=== PATIENT | male | born 1965 | race Caucasian/White ===

== ENCOUNTER 2016-08-30 13:05 | Emergency (ER) | payer OTHER ==
--- NOTE | 2016-08-30 14:25 | REP ---
Clinical: Trauma. Technique: AP, lateral, bilateral oblique views of the left ankle. Findings: Diffuse soft tissue swelling is appreciated. No acute fracture or dislocation. Joint spaces and ankle mortise are intact. Impression: Soft-tissue swelling. No acute fracture or dislocation. Signed by Max Early MD 08/30/2016 02:16 P
--- NOTE | 2016-08-30 14:27 | REP ---
Clinical: Trauma. Technique: AP, lateral, bilateral oblique views left foot. Findings: Soft tissue swelling at the ankle is appreciated. The osseous structures and joint spaces are intact and normal. There is no evidence for acute fracture or dislocation. No subcutaneous emphysema or radiodense foreign body. Impression: No acute fracture or dislocation. Ankle swelling. Signed by Max Early MD 08/30/2016 02:19 P
--- NOTE | 2016-08-30 14:57 | REP ---
Clinical: Pain and swelling . Technique: Ingram scale and color Doppler evaluation using linear high frequency transducer. Findings: Ultrasound examination of the left lower extremity deep venous structures from the common femoral vein to the popliteal vein demonstrates normal compressibility flow and wave patterns in response to respiration and augmentation. There is no evidence for deep venous thrombosis. Impression: No evidence for deep venous thrombosis. Signed by Max Early MD 08/30/2016 02:49 P
[2016-08-30] MEDS ORDERED: OXYCODONE/APAP 5MG/325MG(BULK) 1 TAB TAB As Ordered ONE (15:05)
--- NOTE | 2016-08-30 15:20 | EDDOCDS ---
Physician Documentation [facility] Name: Adi Patiño Age: 51 yrs Sex: Male : 1965 Arrival Date: 08/30/2016 Time: 13:05 Bed I9 / 22 Private MD: Keiry De C Disposition: 08/30/16 14:56 Discharged to Home/Self Care. Impression: Sprain of ankle - left. - Condition is Stable. - Discharge Instructions: Ankle Sprain, Ankle Sprain, [id number]. - Prescriptions for Naprosyn 250 mg Oral Tablet - take 1 tablet by ORAL route every 12 hours take with food; 30 tablet. Percocet 5- 325 mg Oral Tablet - take 1 tablet by ORAL route every 6 hours As needed MDD: 4 tabs; 12 tablet. - Medication Reconciliation, Local Pharmacy Hours form. - Follow up: Keiry De; When: 1 week. - Problem is new. - Symptoms have improved. Historical: - Allergies: hay (eyes and nose runs); - Home Meds: 1. Paxil Oral 1 tab once daily - PMHx: Anxiety; Depression; - PSHx: none; - Social history: Smoking status: Patient states was never smoker of tobacco. No barriers to communication noted, The patient speaks fluent Syriac, Speaks appropriately for age. - Family history: Not pertinent. - : The pt / caregiver states he / she is not on anticoagulants. Home medication list is obtained from the patient. - Exposure Risk Screening:: None identified. Vital Signs: 08/30 13:06 BP 132 / 79; Pulse 70; Resp 18 S; Temp 98.8(O); Pulse Ox 98% on R/A; Weight 90.72 kg / dd6 200 lbs (R); Height 6 ft. 0 in. (182.88 cm) (R); 13:06 Body Mass Index 27.12 (90.72 kg, 182.88 cm) dd6 MDM: 13:35 oxyCODONE-acetaminophen 4 pack 5 mg-325 mg 1 packets PO once; Dispense with pt, take as sd1 per instruction on package ordered. 13:36 US Lower Extremity R/O DVT Ordered. EDMS 13:36 Foot, Complete Ordered. EDMS 13:36 Ankle, Complete Ordered. EDMS 13:48 COUNT INCLUDES THE [facility] Payment Agreement was scanned into [employer] and attached to record. jp5 13:48 Financial registration complete. jp5 14:52 Apply Air Cast to Patient. ordered. sd1 Administered Medications: 15:14 Drug: oxyCODONE-acetaminophen 4 pack 1 packets [oxycodone-acetaminophen 5 mg-325 mg dls tablet (1 tabs)] {Co-Signature: ms2 (Patrick Burdick RN).} Route: PO; Signatures: Dispatcher [employer] Paula Larsen MD MD sd1 Patrick Burdick,RN RN ms2 Vazquez Rivera RN RN Ravinder Griffin jp5 Mary Bailey RN dls Patrick Burdick RN ms2 The chart was reviewed and I authenticate all verbal orders and agree with the evaluation and treatment provided.Attachments: 13:48 COUNT INCLUDES THE [facility] Payment Agreement jp5 MTDD
--- NOTE | 2016-08-30 15:20 | EDDOCDS ---
Nurse's Notes [facility] Name: Adi Patiño Age: 51 yrs Sex: Male : 1965 Arrival Date: 08/30/2016 Time: 13:05 Bed I9 / 22 Private MD: Keiry De C Diagnosis: Sprain of ankle-left Presentation: 08/30 13:07 Presenting complaint: Patient states: fell through step 1 week ago - c/o swelling in bcj left foot and ankle. swelling increased with wt bearing. no pain with wt bearing. denies other injuries. Adult Sepsis Screening: The patient does not have new or worsening altered mentation. Patient's respiratory rate is less than 22. Systolic blood pressure is greater than 100. Patient has a qSOFA score of 0- Negative Sepsis Screen. Suicide/Homicide risk assessment- the patient denies having any suicidal and/or homicidal ideations and does not present with any other emotional, behavioral or mental health complaints. Status: Patient is not a telephone services sales representative or dependent. Transition of care: patient was not received from another setting of care. 13:07 Acuity: CARLOS Level 4 bcj 13:07 Method Of Arrival: Walkin/Carried/Asstd bcj Triage Assessment: 13:08 General: Appears in no apparent distress, comfortable, Behavior is cooperative. Pain: bcj Location: left foot and left leg Pain currently is 5 out of 10 on a pain scale. HIV screening NA for this visit Offered previously. Musculoskeletal: Swelling present in left foot and left leg. Historical: - Allergies: hay (eyes and nose runs); - Home Meds: 1. Paxil Oral 1 tab once daily - PMHx: Anxiety; Depression; - PSHx: none; - Social history: Smoking status: Patient states was never smoker of tobacco. No barriers to communication noted, The patient speaks fluent Israeli, Speaks appropriately for age. - Family history: Not pertinent. - : The pt / caregiver states he / she is not on anticoagulants. Home medication list is obtained from the patient. - Exposure Risk Screening:: None identified. Screenin:17 Screening information is obtained from prior medical records. Fall risk: No risks ms2 identified. Assistance ADL's: requires no assistance with activities of daily living. Abuse/DV Screen: The patient / caregiver reports he/she is: not in a situation that causes fear, pain or injury. Nutritional screening: No deficits noted. Advance Directives: Currently, there is no health care proxy. There is no active DNR order. There is no living will. There is no Power of Molded Parts Inspector. Advance directive information has not previously been placed in an [facility] medical record. Further advance directive information is declined. home support is adequate. Assessment: 15:15 General: Appears in no apparent distress, Behavior is cooperative. Pain: Location: left ms2 ankle\E\ Pain currently is 5 out of 10 on a pain scale. Neurological: Level of Consciousness is awake, alert, obeys commands. Respiratory: No deficits noted. Airway is patent Respiratory effort is even, unlabored, Respiratory pattern is regular, symmetrical. GI: Abdomen is non- distended obese. Derm: Skin is pink, warm & dry. Bruising that is dark purple, to left ankle. Swollen area noted. Musculoskeletal: Circulation, motion, and sensation intact Capillary refill is > 3 seconds due to edema. Range of motion limited in left ankle. Vital Signs: 13:06 BP 132 / 79; Pulse 70; Resp 18 S; Temp 98.8(O); Pulse Ox 98% on R/A; Weight 90.72 kg dd6 (R); Height 6 ft. 0 in. (182.88 cm) (R); 13:06 Body Mass Index 27.12 (90.72 kg, 182.88 cm) dd6 Vitals: 13:06 Log In Time: August 30, 2016 at 13:04. dd6 ED Course: 13:06 Patient visited by Nikita Martin PCA. dd6 13:06 Keiry De is Private Physician. dd6 13:06 Patient moved to Waiting dd6 13:07 Patient moved to Pre RCE dd6 13:08 Triage Initiated bcj 13:09 Patient visited by Vazquez Rivera RN. bcj 13:25 Patient moved to I bcj 13:26 Paula Rose MD is Attending Physician. sd1 13:31 Patient visited by Paula Rose MD. sd1 13:48 [facility] Payment Agreement was scanned into [employer] and attached to record. jp5 14:23 Patient moved to Ultrasound hgl 14:37 Patient moved to I9 / hgl 14:53 Patient visited by Mary Bailey RN. dls 14:55 Keiry De is Referral Physician. sd1 15:08 Ankle, Complete Returned. EDMS 15:08 Foot, Complete Returned. EDMS 15:08 US Lower Extremity R/O DVT Returned. EDMS 15:13 Patient visited by Patrick Burdick,AMOR. ms2 15:18 The patient / caregiver is instructed regarding the plan of care and ED course. ms2 15:18 No IV's were initiated during this patient's visit. No procedures done that require ms2 assistance. Administered Medications: 15:14 Drug: oxyCODONE-acetaminophen 4 pack 1 packets [oxycodone-acetaminophen 5 mg-325 mg dls tablet (1 tabs)] {Co-Signature: ms2 (Patrick Burdick RN).} Route: PO; Order Results: Radiology Order: Foot, Complete Test: Foot, Complete REASON FOR EXAMINATION: Trauma; Clinical: Trauma.; ; Technique: AP, lateral, bilateral oblique views left foot.; ; Findings: Soft tissue swelling at the ankle is appreciated. The osseous; structures and joint spaces are intact and normal. There is no evidence for; acute fracture or dislocation. No subcutaneous emphysema or radiodense foreign; body.; ; Impression:; No acute fracture or dislocation. Ankle swelling.; ; ; Signed by; Max Early MD 08/30/2016 02:19 P; Radiology Order: Ankle, Complete Test: Ankle, Complete REASON FOR EXAMINATION: Trauma; Clinical: Trauma.; ; Technique: AP, lateral, bilateral oblique views of the left ankle.; ; Findings:; Diffuse soft tissue swelling is appreciated. No acute fracture or dislocation.; Joint spaces and ankle mortise are intact.; ; Impression:; Soft-tissue swelling. No acute fracture or dislocation.; ; ; Signed by; Max Earyl MD 08/30/2016 02:16 P; Radiology Order: US Lower Extremity R/O DVT Test: US Lower Extremity R/O DVT REASON FOR EXAMINATION: swelling; Clinical: Pain and swelling .; ; Technique: Ingram scale and color Doppler evaluation using linear high frequency; transducer.; ; Findings:; Ultrasound examination of the left lower extremity deep venous structures from; the common femoral vein to the popliteal vein demonstrates normal compressibility; flow and wave patterns in response to respiration and augmentation. There is no; evidence for deep venous thrombosis.; ; Impression:; No evidence for deep venous thrombosis.; ; ; Signed by; Max Early MD 08/30/2016 02:49 P; Outcome: 14:56 Discharge ordered by Provider. sd1 15:18 Discharge Assessment: patient administered narcotics - no. The following High Risk ms2 Discharge criteria are identified: None. Discharged to home ambulatory, air cast applied to left ankle. Condition: stable. Discharge instructions given to patient, Instructed on discharge instructions, follow up and referral plans. medication usage, no driving heavy equipment, no drinking with medication, Demonstrated understanding of instructions, medications, Pt was receptive of discharge instructions/ teaching. Prescriptions given X 2 faxed. No special radiology studies were completed. Property sent home with patient. 15:19 Patient left the ED. ms2 Signatures: Dispatcher [employer] EDMS Paula Rose MD MD sd1 Patrick Burdick RN RN ms2 Vazquez Rivera RN RN bcj Scott, Debra, RN RN dls Desormeau, Daniell, DINING CAR STEWARD DINING CAR STEWARD dd6 Ly, Armando hgl Ravinder Bundy jp5 Patrick Burdick RN ms2 MTDD
--- NOTE | 2016-09-01 16:20 | EDDOCDS ---
Physician Documentation [facility] Name: Adi Patiño Age: 51 yrs Sex: Male : 1965 Arrival Date: 08/30/2016 Time: 13:05 Bed I9 / 22 Private MD: Keiry De C Disposition: 08/30/16 14:56 Discharged to Home/Self Care. Impression: Sprain of ankle - left. - Condition is Stable. - Discharge Instructions: Ankle Sprain, Ankle Sprain, [id number]. - Prescriptions for Naprosyn 250 mg Oral Tablet - take 1 tablet by ORAL route every 12 hours take with food; 30 tablet. Percocet 5- 325 mg Oral Tablet - take 1 tablet by ORAL route every 6 hours As needed MDD: 4 tabs; 12 tablet. - Medication Reconciliation, Local Pharmacy Hours form. - Follow up: Keiry De; When: 1 week. - Problem is new. - Symptoms have improved. Historical: - Allergies: hay (eyes and nose runs); - Home Meds: 1. Paxil Oral 1 tab once daily - PMHx: Anxiety; Depression; - PSHx: none; - Social history: Smoking status: Patient states was never smoker of tobacco. No barriers to communication noted, The patient speaks fluent Frisian, Speaks appropriately for age. - Family history: Not pertinent. - : The pt / caregiver states he / she is not on anticoagulants. Home medication list is obtained from the patient. - Exposure Risk Screening:: None identified. Vital Signs: 08/30 13:06 BP 132 / 79; Pulse 70; Resp 18 S; Temp 98.8(O); Pulse Ox 98% on R/A; Weight 90.72 kg / dd6 200 lbs (R); Height 6 ft. 0 in. (182.88 cm) (R); 15:19 BP 133 / 86; Pulse 76; Resp 20 S; Temp 97.3(O); Pulse Ox 96% on R/A; Pain 5/10; ms2 13:06 Body Mass Index 27.12 (90.72 kg, 182.88 cm) dd6 MDM: 13:35 oxyCODONE-acetaminophen 4 pack 5 mg-325 mg 1 packets PO once; Dispense with pt, take as sd1 per instruction on package ordered. 13:36 US Lower Extremity R/O DVT Ordered. EDMS 13:36 Foot, Complete Ordered. EDMS 13:36 Ankle, Complete Ordered. EDMS 13:48 [facility] Payment Agreement was scanned into [employer] and attached to record. jp5 13:48 Financial registration complete. jp5 14:52 Apply Air Cast to Patient. ordered. sd1 21:17 T-Sheet-- Draft Copy was scanned into [employer] and attached to record. klr Administered Medications: 15:14 Drug: oxyCODONE-acetaminophen 4 pack 1 packets [oxycodone-acetaminophen 5 mg-325 mg dls tablet (1 tabs)] {Co-Signature: ms2 (Patrick Burdick RN).} Route: PO; Signatures: Dispatcher [employer] EDMS Paula Rose MD MD sd1 Patrick Burdick RN RN ms2 Vazquez Rivera RN RN Ravinder Griffin jp5 Brittany Hall Debra RN dls Patrick Burdick RN ms2 The chart was reviewed and I authenticate all verbal orders and agree with the evaluation and treatment provided.Attachments: 13:48 [facility] Payment Agreement jp5 21:17 T-Sheet-- Draft Copy klr Chart Complete MTDD
--- NOTE | 2016-09-01 16:20 | EDDOCDS ---
Physician Documentation [facility] Name: Adi Patiño Age: 51 yrs Sex: Male : 1965 Arrival Date: 08/30/2016 Time: 13:05 Bed I9 / 22 Private MD: Keiry De C Disposition: 08/30/16 14:56 Discharged to Home/Self Care. Impression: Sprain of ankle - left. - Condition is Stable. - Discharge Instructions: Ankle Sprain, Ankle Sprain, [id number]. - Prescriptions for Naprosyn 250 mg Oral Tablet - take 1 tablet by ORAL route every 12 hours take with food; 30 tablet. Percocet 5- 325 mg Oral Tablet - take 1 tablet by ORAL route every 6 hours As needed MDD: 4 tabs; 12 tablet. - Medication Reconciliation, Local Pharmacy Hours form. - Follow up: Keiry De; When: 1 week. - Problem is new. - Symptoms have improved. Historical: - Allergies: hay (eyes and nose runs); - Home Meds: 1. Paxil Oral 1 tab once daily - PMHx: Anxiety; Depression; - PSHx: none; - Social history: Smoking status: Patient states was never smoker of tobacco. No barriers to communication noted, The patient speaks fluent Maltese, Speaks appropriately for age. - Family history: Not pertinent. - : The pt / caregiver states he / she is not on anticoagulants. Home medication list is obtained from the patient. - Exposure Risk Screening:: None identified. Vital Signs: 08/30 13:06 BP 132 / 79; Pulse 70; Resp 18 S; Temp 98.8(O); Pulse Ox 98% on R/A; Weight 90.72 kg / dd6 200 lbs (R); Height 6 ft. 0 in. (182.88 cm) (R); 15:19 BP 133 / 86; Pulse 76; Resp 20 S; Temp 97.3(O); Pulse Ox 96% on R/A; Pain 5/10; ms2 13:06 Body Mass Index 27.12 (90.72 kg, 182.88 cm) dd6 MDM: 13:35 oxyCODONE-acetaminophen 4 pack 5 mg-325 mg 1 packets PO once; Dispense with pt, take as sd1 per instruction on package ordered. 13:36 US Lower Extremity R/O DVT Ordered. EDMS 13:36 Foot, Complete Ordered. EDMS 13:36 Ankle, Complete Ordered. EDMS 13:48 [facility] Payment Agreement was scanned into [employer] and attached to record. jp5 13:48 Financial registration complete. jp5 14:52 Apply Air Cast to Patient. ordered. sd1 21:17 T-Sheet-- Draft Copy was scanned into [employer] and attached to record. klr Administered Medications: 15:14 Drug: oxyCODONE-acetaminophen 4 pack 1 packets [oxycodone-acetaminophen 5 mg-325 mg dls tablet (1 tabs)] {Co-Signature: ms2 (Patrcik Burdick RN).} Route: PO; Signatures: Dispatcher [employer] EDMS Paula Rose MD MD sd1 Patrick Burdick RN RN ms2 Vazquez Rivera RN RN Ravinder Griffin jp5 Brittany Hall Debra RN dls Patrick Burdick RN ms2 The chart was reviewed and I authenticate all verbal orders and agree with the evaluation and treatment provided.Attachments: 13:48 [facility] Payment Agreement jp5 21:17 T-Sheet-- Draft Copy klr Chart Complete MTDD
--- NOTE | 2016-09-01 16:20 | EDDOCDS ---
Nurse's Notes [facility] Name: Adi Patiño Age: 51 yrs Sex: Male : 1965 Arrival Date: 08/30/2016 Time: 13:05 Bed I9 / 22 Private MD: Keiry De C Diagnosis: Sprain of ankle-left Presentation: 08/30 13:07 Presenting complaint: Patient states: fell through step 1 week ago - c/o swelling in bcj left foot and ankle. swelling increased with wt bearing. no pain with wt bearing. denies other injuries. Adult Sepsis Screening: The patient does not have new or worsening altered mentation. Patient's respiratory rate is less than 22. Systolic blood pressure is greater than 100. Patient has a qSOFA score of 0- Negative Sepsis Screen. Suicide/Homicide risk assessment- the patient denies having any suicidal and/or homicidal ideations and does not present with any other emotional, behavioral or mental health complaints. Status: Patient is not a rehabilitation services aide or dependent. Transition of care: patient was not received from another setting of care. 13:07 Acuity: CARLOS Level 4 bcj 13:07 Method Of Arrival: Walkin/Carried/Asstd bcj Triage Assessment: 13:08 General: Appears in no apparent distress, comfortable, Behavior is cooperative. Pain: bcj Location: left foot and left leg Pain currently is 5 out of 10 on a pain scale. HIV screening NA for this visit Offered previously. Musculoskeletal: Swelling present in left foot and left leg. Historical: - Allergies: hay (eyes and nose runs); - Home Meds: 1. Paxil Oral 1 tab once daily - PMHx: Anxiety; Depression; - PSHx: none; - Social history: Smoking status: Patient states was never smoker of tobacco. No barriers to communication noted, The patient speaks fluent Ethiopian, Speaks appropriately for age. - Family history: Not pertinent. - : The pt / caregiver states he / she is not on anticoagulants. Home medication list is obtained from the patient. - Exposure Risk Screening:: None identified. Screenin:17 Screening information is obtained from prior medical records. Fall risk: No risks ms2 identified. Assistance ADL's: requires no assistance with activities of daily living. Abuse/DV Screen: The patient / caregiver reports he/she is: not in a situation that causes fear, pain or injury. Nutritional screening: No deficits noted. Advance Directives: Currently, there is no health care proxy. There is no active DNR order. There is no living will. There is no Power of White Sugar Syrup Operator. Advance directive information has not previously been placed in an [facility] medical record. Further advance directive information is declined. home support is adequate. Assessment: 15:15 General: Appears in no apparent distress, Behavior is cooperative. Pain: Location: left ms2 ankle\E\ Pain currently is 5 out of 10 on a pain scale. Neurological: Level of Consciousness is awake, alert, obeys commands. Respiratory: No deficits noted. Airway is patent Respiratory effort is even, unlabored, Respiratory pattern is regular, symmetrical. GI: Abdomen is non- distended obese. Derm: Skin is pink, warm & dry. Bruising that is dark purple, to left ankle. Swollen area noted. Musculoskeletal: Circulation, motion, and sensation intact Capillary refill is > 3 seconds due to edema. Range of motion limited in left ankle. Vital Signs: 13:06 BP 132 / 79; Pulse 70; Resp 18 S; Temp 98.8(O); Pulse Ox 98% on R/A; Weight 90.72 kg dd6 (R); Height 6 ft. 0 in. (182.88 cm) (R); 15:19 BP 133 / 86; Pulse 76; Resp 20 S; Temp 97.3(O); Pulse Ox 96% on R/A; Pain 5/10; ms2 13:06 Body Mass Index 27.12 (90.72 kg, 182.88 cm) dd6 Vitals: 13:06 Log In Time: August 30, 2016 at 13:04. dd6 ED Course: 13:06 Patient visited by Nikita Martin PCA. dd6 13:06 Keiry De is Private Physician. dd6 13:06 Patient moved to Waiting dd6 13:07 Patient moved to Pre RCE dd6 13:08 Triage Initiated bcj 13:09 Patient visited by Vazquez Rivera RN. bcj 13:25 Patient moved to I bcj 13:26 Paula Rose MD is Attending Physician. sd1 13:31 Patient visited by Paula Rose MD. sd1 13:48 [facility] Payment Agreement was scanned into [employer] and attached to record. jp5 14:23 Patient moved to Ultrasound hgl 14:37 Patient moved to I9 / 22 hgl 14:53 Patient visited by Mary Bailey RN. dls 14:55 Keiry De is Referral Physician. sd1 15:08 Ankle, Complete Returned. EDMS 15:08 Foot, Complete Returned. EDMS 15:08 US Lower Extremity R/O DVT Returned. EDMS 15:13 Patient visited by Patrick Burdick,AMOR. ms2 15:18 The patient / caregiver is instructed regarding the plan of care and ED course. ms2 15:18 No IV's were initiated during this patient's visit. No procedures done that require ms2 assistance. 21:17 T-Sheet-- Draft Copy was scanned into [employer] and attached to record. klr Administered Medications: 15:14 Drug: oxyCODONE-acetaminophen 4 pack 1 packets [oxycodone-acetaminophen 5 mg-325 mg dls tablet (1 tabs)] {Co-Signature: ms2 (Patrick Burdick RN).} Route: PO; Order Results: Radiology Order: Foot, Complete Test: Foot, Complete REASON FOR EXAMINATION: Trauma; Clinical: Trauma.; ; Technique: AP, lateral, bilateral oblique views left foot.; ; Findings: Soft tissue swelling at the ankle is appreciated. The osseous; structures and joint spaces are intact and normal. There is no evidence for; acute fracture or dislocation. No subcutaneous emphysema or radiodense foreign; body.; ; Impression:; No acute fracture or dislocation. Ankle swelling.; ; ; Signed by; Max Early MD 08/30/2016 02:19 P; Radiology Order: Ankle, Complete Test: Ankle, Complete REASON FOR EXAMINATION: Trauma; Clinical: Trauma.; ; Technique: AP, lateral, bilateral oblique views of the left ankle.; ; Findings:; Diffuse soft tissue swelling is appreciated. No acute fracture or dislocation.; Joint spaces and ankle mortise are intact.; ; Impression:; Soft-tissue swelling. No acute fracture or dislocation.; ; ; Signed by; Max Early MD 08/30/2016 02:16 P; Radiology Order: US Lower Extremity R/O DVT Test: US Lower Extremity R/O DVT REASON FOR EXAMINATION: swelling; Clinical: Pain and swelling .; ; Technique: Ingram scale and color Doppler evaluation using linear high frequency; transducer.; ; Findings:; Ultrasound examination of the left lower extremity deep venous structures from; the common femoral vein to the popliteal vein demonstrates normal compressibility; flow and wave patterns in response to respiration and augmentation. There is no; evidence for deep venous thrombosis.; ; Impression:; No evidence for deep venous thrombosis.; ; ; Signed by; Max Early MD 08/30/2016 02:49 P; Outcome: 14:56 Discharge ordered by Provider. sd1 15:18 Discharge Assessment: patient administered narcotics - no. The following High Risk ms2 Discharge criteria are identified: None. Discharged to home ambulatory, air cast applied to left ankle. Condition: stable. Discharge instructions given to patient, Instructed on discharge instructions, follow up and referral plans. medication usage, no driving heavy equipment, no drinking with medication, Demonstrated understanding of instructions, medications, Pt was receptive of discharge instructions/ teaching. Prescriptions given X 2 faxed. No special radiology studies were completed. Property sent home with patient. 15:19 Patient left the ED. ms2 Signatures: Dispatcher [employer] EDMS Paula Rose MD MD sd1 Patrick Burdick,RN RN ms2 Vazquez Rivera, RN Mary Terrell, RN RN Nikita Adames, LIZBETH CUSTOMER OPERATIONS SPECIALIST dd6 Armando Hendrickson Jennalee jp5 Redder, Kathie klr Michele Sobkiewicz RN ms2 Chart Complete MTDD
== END 2016-08-30 15:19 | disposition home or self-care (01) ==
LOC: M ED 13:05
DX: M79.89 Other specified soft tissue disorders (principal); S93.402A Sprain of unspecified ligament of left ankle, initial encounter; W10.9XXA Fall (on) (from) unspecified stairs and steps, initial encounter; Y92.019 Unspecified place in single-family (private) house as the place of occurrence of the external cause; Y93.89 Activity, other specified; Y99.8 Other external cause status; F41.9 Anxiety disorder, unspecified; F32.9 Major depressive disorder, single episode, unspecified; J30.1 Allergic rhinitis due to pollen; Z79.899 Other long term (current) drug therapy

== ENCOUNTER 2016-09-23 13:51 | Emergency (ER) | payer OTHER ==
--- NOTE | 2016-09-23 15:16 | EDDOCDS ---
Physician Documentation [facility] Name: Adi Patiño Age: 51 yrs Sex: Male : 1965 Arrival Date: 09/23/2016 Time: 13:51 Bed I1 / M1 Private MD: NO PRIMARY PHYSICIAN, . Disposition: 09/23/16 15:11 Discharged to Home/Self Care. Impression: Acute frontal sinusitis. - Condition is Stable. - Discharge Instructions: Sinusitis, Adult. - Prescriptions for Augmentin 875- 125 mg Oral Tablet - take 1 tablet by ORAL route every 12 hours for 10 days; 20 tablet. Claritin- D 12 Hour 5-120 mg Oral Tablet Sustained Release 12 hr - take 1 tablet by ORAL route every 12 hours As needed; 30 tablet. - Medication Reconciliation, Local Pharmacy Hours form. - [facility]; When: 4 - 5 days; Reason: Recheck today's complaints, Continuance of care. - Problem is an ongoing problem. - Symptoms are unchanged. Historical: - Allergies: hay (eyes and nose runs); - Home Meds: 1. none - PMHx: Anxiety; Depression; - PSHx: none; - Social history: Smoking status: Patient states former smoker of tobacco. No barriers to communication noted, The patient speaks fluent Czech, Speaks appropriately for age. - Family history: Not pertinent. - : The pt / caregiver states he / she is not on anticoagulants. Home medication list is obtained from the patient. - Exposure Risk Screening:: None identified. Vital Signs: 09/23 13:52 BP 122 / 77; Pulse 89; Resp 18 S; Temp 96.5(O); Pulse Ox 99% on R/A; Weight 90.72 kg / gr2 200 lbs (R); Height 6 ft. 0 in. (182.88 cm) (R); Pain 4/10; 13:52 Body Mass Index 27.12 (90.72 kg, 182.88 cm) gr2 Signatures: Jaguar Sheldon, ANCILLARY SERVICES MANAGER ANCILLARY SERVICES MANAGER Carlo Dyer RN RN mlb1 Angela RosarioRN RN ck1 MTDD
--- NOTE | 2016-09-23 15:16 | EDDOCDS ---
Nurse's Notes [facility] Name: Adi Patiño Age: 51 yrs Sex: Male : 1965 Arrival Date: 09/23/2016 Time: 13:51 Bed I1 / M1 Private MD: NO PRIMARY PHYSICIAN, . Diagnosis: Acute frontal sinusitis Presentation: 09/23 14:09 Presenting complaint: Patient states: "I got a head cold, sinusitis, bronchitis, mlb1 something". symptoms began Thursday morning. Adult Sepsis Screening: The patient does not have new or worsening altered mentation. Patient's respiratory rate is less than 22. Systolic blood pressure is greater than 100. Patient has a qSOFA score of 0- Negative Sepsis Screen. Suicide/Homicide risk assessment- the patient denies having any suicidal and/or homicidal ideations and does not present with any other emotional, behavioral or mental health complaints. Status: Patient is not a program services planner or dependent. Transition of care: patient was not received from another setting of care. 14:09 Acuity: CRALOS Level 4 mlb1 14:09 Method Of Arrival: Walkin/Carried/Asstd mlb1 Triage Assessment: 14:10 General: Appears in no apparent distress, Behavior is appropriate for age, cooperative. mlb1 Pain: Location: head Pain currently is 5 out of 10 on a pain scale. HIV screening NA for this visit Offered previously. Respiratory: Reports cough that is non-productive. Historical: - Allergies: hay (eyes and nose runs); - Home Meds: 1. none - PMHx: Anxiety; Depression; - PSHx: none; - Social history: Smoking status: Patient states former smoker of tobacco. No barriers to communication noted, The patient speaks fluent Emirati, Speaks appropriately for age. - Family history: Not pertinent. - : The pt / caregiver states he / she is not on anticoagulants. Home medication list is obtained from the patient. - Exposure Risk Screening:: None identified. Screenin:14 Screening information is obtained from the patient. Fall risk: No risks identified. ck1 Assistance ADL's: requires no assistance with activities of daily living. Abuse/DV Screen: The patient / caregiver reports he/she is: not in a situation that causes fear, pain or injury. Nutritional screening: No deficits noted. Advance Directives: Currently, there is no health care proxy. home support is adequate. Assessment: 15:15 General: Appears in no apparent distress, comfortable, Behavior is appropriate for age, ck1 cooperative. Pain: Location: head Pain currently is 5 out of 10 on a pain scale. Neurological: Level of Consciousness is awake, alert, obeys commands, Oriented to person, place, time. Respiratory: Respiratory effort is unlabored, Respiratory pattern is regular, symmetrical. Derm: Skin is intact, is healthy with good turgor, Skin is pink, warm & dry. Musculoskeletal: Circulation, motion, and sensation intact. Vital Signs: 13:52 BP 122 / 77; Pulse 89; Resp 18 S; Temp 96.5(O); Pulse Ox 99% on R/A; Weight 90.72 kg gr2 (R); Height 6 ft. 0 in. (182.88 cm) (R); Pain 4/10; 13:52 Body Mass Index 27.12 (90.72 kg, 182.88 cm) gr2 Vitals: 13:52 Log In Time: September 23, 2016 at 13:52. gr2 ED Course: 13:52 Patient visited by Richard Garibay. gr2 13:52 NO PRIMARY PHYSICIAN, . is Private Physician. gr2 13:52 Patient moved to Waiting gr2 13:54 Patient visited by Richard Garibay. gr2 13:54 Patient moved to Pre RCE gr2 14:09 Patient visited by Carlo Elena, RN. mlb1 14:10 Patient visited by Carlo Elena RN. mlb1 14:10 Triage Initiated mlb1 14:59 Patient moved to I1 / M1 mlb1 15:01 Jaguar Sheldon F[facility] ke 15:01 Patient visited by Jaguar Sheldon FNP. ke 15:03 Patient visited by Jaguar Sheldon FNP. ke 15:10 [facility] is Referral Physician. ke 15:14 No IV's were initiated during this patient's visit. No procedures done that require ck1 assistance. 15:15 The patient / caregiver is instructed regarding the plan of care and ED course. ck1 Order Results: There are currently no results for this order. Outcome: 15:11 Discharge ordered by Provider. ke 15:14 Discharge Assessment: Patient awake, alert and oriented x 3. No cognitive and/or ck1 functional deficits noted. Patient verbalized understanding of disposition instructions. patient administered narcotics - no. The following High Risk Discharge criteria are identified: None. Discharged to home ambulatory. Condition: stable. Discharge instructions given to patient, Instructed on discharge instructions, follow up and referral plans. medication usage, Demonstrated understanding of instructions, medications, Pt was receptive of discharge instructions/ teaching. Prescriptions given X 2. No special radiology studies were completed. Property :Personal belongings accompany Pt. 15:15 Patient left the ED. ck1 Signatures: Jaguar Sheldon, Carlo Méndez RN RN mlb1 Angela RosarioRN RN ck1 Richard Garibay gr2 MTDD
--- NOTE | 2016-09-25 16:16 | EDDOCDS ---
Nurse's Notes [facility] Name: Adi Patiño Age: 51 yrs Sex: Male : 1965 Arrival Date: 09/23/2016 Time: 13:51 Bed I1 / M1 Private MD: NO PRIMARY PHYSICIAN, . Diagnosis: Acute frontal sinusitis Presentation: 09/23 14:09 Presenting complaint: Patient states: "I got a head cold, sinusitis, bronchitis, mlb1 something". symptoms began Thursday morning. Adult Sepsis Screening: The patient does not have new or worsening altered mentation. Patient's respiratory rate is less than 22. Systolic blood pressure is greater than 100. Patient has a qSOFA score of 0- Negative Sepsis Screen. Suicide/Homicide risk assessment- the patient denies having any suicidal and/or homicidal ideations and does not present with any other emotional, behavioral or mental health complaints. Status: Patient is not a pool servicer or dependent. Transition of care: patient was not received from another setting of care. 14:09 Acuity: CARLOS Level 4 mlb1 14:09 Method Of Arrival: Walkin/Carried/Asstd mlb1 Triage Assessment: 14:10 General: Appears in no apparent distress, Behavior is appropriate for age, cooperative. mlb1 Pain: Location: head Pain currently is 5 out of 10 on a pain scale. HIV screening NA for this visit Offered previously. Respiratory: Reports cough that is non-productive. Historical: - Allergies: hay (eyes and nose runs); - Home Meds: 1. none - PMHx: Anxiety; Depression; - PSHx: none; - Social history: Smoking status: Patient states former smoker of tobacco. No barriers to communication noted, The patient speaks fluent Moldovan, Speaks appropriately for age. - Family history: Not pertinent. - : The pt / caregiver states he / she is not on anticoagulants. Home medication list is obtained from the patient. - Exposure Risk Screening:: None identified. Screenin:14 Screening information is obtained from the patient. Fall risk: No risks identified. ck1 Assistance ADL's: requires no assistance with activities of daily living. Abuse/DV Screen: The patient / caregiver reports he/she is: not in a situation that causes fear, pain or injury. Nutritional screening: No deficits noted. Advance Directives: Currently, there is no health care proxy. home support is adequate. Assessment: 15:15 General: Appears in no apparent distress, comfortable, Behavior is appropriate for age, ck1 cooperative. Pain: Location: head Pain currently is 5 out of 10 on a pain scale. Neurological: Level of Consciousness is awake, alert, obeys commands, Oriented to person, place, time. Respiratory: Respiratory effort is unlabored, Respiratory pattern is regular, symmetrical. Derm: Skin is intact, is healthy with good turgor, Skin is pink, warm & dry. Musculoskeletal: Circulation, motion, and sensation intact. Vital Signs: 13:52 BP 122 / 77; Pulse 89; Resp 18 S; Temp 96.5(O); Pulse Ox 99% on R/A; Weight 90.72 kg gr2 (R); Height 6 ft. 0 in. (182.88 cm) (R); Pain 4/10; 13:52 Body Mass Index 27.12 (90.72 kg, 182.88 cm) gr2 Vitals: 13:52 Log In Time: September 23, 2016 at 13:52. gr2 ED Course: 13:52 Patient visited by Richard Garibay. gr2 13:52 NO PRIMARY PHYSICIAN, . is Private Physician. gr2 13:52 Patient moved to Waiting gr2 13:54 Patient visited by Richard Garibay. gr2 13:54 Patient moved to Pre RCE gr2 14:09 Patient visited by Carlo Elena, RN. mlb1 14:10 Patient visited by Carlo Elena, RN. mlb1 14:10 Triage Initiated mlb1 14:59 Patient moved to I1 / M1 mlb1 15:01 Jaguar Sheld[facility] ke 15:01 Patient visited by Jaguar Sheldon FNP. ke 15:03 Patient visited by Jaguar Sheldon FNP. ke 15:10 [facility] is Referral Physician. ke 15:14 No IV's were initiated during this patient's visit. No procedures done that require ck1 assistance. 15:15 The patient / caregiver is instructed regarding the plan of care and ED course. ck1 15:28 [facility] Payment Agreement was scanned into [employer] and attached to record. jp5 09/24 11:30 T-Sheet-- Draft Copy was scanned into [employer] and attached to record. gb Order Results: There are currently no results for this order. Outcome: 09/23 15:11 Discharge ordered by Provider. daniel 15:14 Discharge Assessment: Patient awake, alert and oriented x 3. No cognitive and/or ck1 functional deficits noted. Patient verbalized understanding of disposition instructions. patient administered narcotics - no. The following High Risk Discharge criteria are identified: None. Discharged to home ambulatory. Condition: stable. Discharge instructions given to patient, Instructed on discharge instructions, follow up and referral plans. medication usage, Demonstrated understanding of instructions, medications, Pt was receptive of discharge instructions/ teaching. Prescriptions given X 2. No special radiology studies were completed. Property :Personal belongings accompany Pt. 15:15 Patient left the ED. ck1 Signatures: Claudia Anderson, Reg Reg Jaguar Pool, RN WOMEN SERVICES RN WOMEN SERVICES Carlo Dyer, RN RN mlb1 Angela RosarioRN RN ck1 Richard Garibay gr2 Ravinder Bundy jp5 Chart Complete [facility]
--- NOTE | 2016-09-25 16:16 | EDDOCDS ---
Physician Documentation [facility] Name: Aid Patiño Age: 51 yrs Sex: Male : 1965 Arrival Date: 09/23/2016 Time: 13:51 Bed I1 / M1 Private MD: NO PRIMARY PHYSICIAN, . Disposition: 09/23/16 15:11 Discharged to Home/Self Care. Impression: Acute frontal sinusitis. - Condition is Stable. - Discharge Instructions: Sinusitis, Adult. - Prescriptions for Augmentin 875- 125 mg Oral Tablet - take 1 tablet by ORAL route every 12 hours for 10 days; 20 tablet. Claritin- D 12 Hour 5-120 mg Oral Tablet Sustained Release 12 hr - take 1 tablet by ORAL route every 12 hours As needed; 30 tablet. - Medication Reconciliation, Local Pharmacy Hours form. - Follow up: [facility]; When: 4 - 5 days; Reason: Recheck today's complaints, Continuance of care. - Problem is an ongoing problem. - Symptoms are unchanged. Historical: - Allergies: hay (eyes and nose runs); - Home Meds: 1. none - PMHx: Anxiety; Depression; - PSHx: none; - Social history: Smoking status: Patient states former smoker of tobacco. No barriers to communication noted, The patient speaks fluent Wolof, Speaks appropriately for age. - Family history: Not pertinent. - : The pt / caregiver states he / she is not on anticoagulants. Home medication list is obtained from the patient. - Exposure Risk Screening:: None identified. Vital Signs: 09/23 13:52 BP 122 / 77; Pulse 89; Resp 18 S; Temp 96.5(O); Pulse Ox 99% on R/A; Weight 90.72 kg / gr2 200 lbs (R); Height 6 ft. 0 in. (182.88 cm) (R); Pain 4/10; 13:52 Body Mass Index 27.12 (90.72 kg, 182.88 cm) gr2 MDM: 15:28 [facility] Payment Agreement was scanned into [employer] and attached to record. jp5 15:28 Financial registration complete. jp5 09/24 11:30 T-Sheet-- Draft Copy was scanned into [employer] and attached to record. gb Signatures: Claudia Anderson, Reg Reg gb Jaguar Sheldon, ASSEMBLER FINGER BUFFS ASSEMBLER FINGER BUFFS Carlo Dyer RN RN mlb1 Angela RosarioRN RN ck1 Ravinder Bundy jp5 The chart was reviewed and I authenticate all verbal orders and agree with the evaluation and treatment provided.Attachments: 09/23 15:28 [facility] Payment Agreement jp5 09/24 11:30 T-Sheet-- Draft Copy gb Chart Complete MTDD
--- NOTE | 2016-09-25 16:16 | EDDOCDS ---
Physician Documentation [facility] Name: Adi Patiño Age: 51 yrs Sex: Male : 1965 Arrival Date: 09/23/2016 Time: 13:51 Bed I1 / M1 Private MD: NO PRIMARY PHYSICIAN, . Disposition: 09/23/16 15:11 Discharged to Home/Self Care. Impression: Acute frontal sinusitis. - Condition is Stable. - Discharge Instructions: Sinusitis, Adult. - Prescriptions for Augmentin 875- 125 mg Oral Tablet - take 1 tablet by ORAL route every 12 hours for 10 days; 20 tablet. Claritin- D 12 Hour 5-120 mg Oral Tablet Sustained Release 12 hr - take 1 tablet by ORAL route every 12 hours As needed; 30 tablet. - Medication Reconciliation, Local Pharmacy Hours form. - Follow up: [facility]; When: 4 - 5 days; Reason: Recheck today's complaints, Continuance of care. - Problem is an ongoing problem. - Symptoms are unchanged. Historical: - Allergies: hay (eyes and nose runs); - Home Meds: 1. none - PMHx: Anxiety; Depression; - PSHx: none; - Social history: Smoking status: Patient states former smoker of tobacco. No barriers to communication noted, The patient speaks fluent Japanese, Speaks appropriately for age. - Family history: Not pertinent. - : The pt / caregiver states he / she is not on anticoagulants. Home medication list is obtained from the patient. - Exposure Risk Screening:: None identified. Vital Signs: 09/23 13:52 BP 122 / 77; Pulse 89; Resp 18 S; Temp 96.5(O); Pulse Ox 99% on R/A; Weight 90.72 kg / gr2 200 lbs (R); Height 6 ft. 0 in. (182.88 cm) (R); Pain 4/10; 13:52 Body Mass Index 27.12 (90.72 kg, 182.88 cm) gr2 MDM: 15:28 [facility] Payment Agreement was scanned into [employer] and attached to record. jp5 15:28 Financial registration complete. jp5 09/24 11:30 T-Sheet-- Draft Copy was scanned into [employer] and attached to record. gb Signatures: Claudia Anderson, Reg Reg gb Jaguar Sheldon, MOLDING MACHINE OPERATOR MOLDING MACHINE OPERATOR Carlo Dyer RN RN mlb1 Angela RosarioRN RN ck1 Ravinder Bundy jp5 The chart was reviewed and I authenticate all verbal orders and agree with the evaluation and treatment provided.Attachments: 09/23 15:28 [facility] Payment Agreement jp5 09/24 11:30 T-Sheet-- Draft Copy gb Chart Complete MTDD
== END 2016-09-23 15:15 | disposition home or self-care (01) ==
LOC: M ED 13:51
DX: J01.90 Acute sinusitis, unspecified (principal); F41.9 Anxiety disorder, unspecified; F32.9 Major depressive disorder, single episode, unspecified; Z87.891 Personal history of nicotine dependence; J30.89 Other allergic rhinitis

== ENCOUNTER 2017-05-19 16:25 | Emergency (ER) | payer OTHER ==
[~2017-05-19] VITALS: Ht 182.9 cm; Wt 102.0 kg
[2017-05-19 16:26] VITALS: BP 131/75
[2017-05-19] MEDS ORDERED: PAXI10TA12 PO (16:33)
== END 2017-05-19 18:05 | disposition left against medical advice (07) ==
LOC: M ED 16:25
DX: R22.30 Localized swelling, mass and lump, unspecified upper limb (principal); Z53.29 Procedure and treatment not carried out because of patient's decision for other reasons

== ENCOUNTER 2017-06-29 14:03 | Emergency (ER) | payer OTHER ==
[~2017-06-29] VITALS: Ht 182.9 cm; Wt 104.5 kg
[~2017-06-29 14:03] MED LIST: PAXI10TA12 PO
[2017-06-29] MEDS ORDERED: AUGM875T28 PO (16:25)
[2017-06-29 16:46] VITALS: BP 135/87
== END 2017-06-29 16:46 | disposition home or self-care (01) ==
LOC: M ED 14:03
DX: J32.9 Chronic sinusitis, unspecified (principal); F33.9 Major depressive disorder, recurrent, unspecified; Z79.899 Other long term (current) drug therapy; Z87.891 Personal history of nicotine dependence

== ENCOUNTER 2018-01-06 13:45 | Emergency (ER) | payer OTHER | END 2018-01-06 18:36 | disposition left against medical advice (07) | LOC: M ED 13:45 | DX: Z53.21 Procedure and treatment not carried out due to patient leaving prior to being seen by health care provider (principal) ==

== ENCOUNTER 2018-02-03 09:02 | Emergency (ER) | payer OTHER ==
[2018-02-03] MEDS: NAPROXEN 250 MG TAB PO (09:28)
[2018-02-03 09:54] LABS: BASO % 0.5 % (0.0-1.0); EOS # 0.1 10^3/uL (0.0-0.50); EOS % 1.8 % (0.0-3.0); HEMATOCRIT 43.5 % (42.0-52.0); HEMOGLOBIN 15.2 g/dl (13.5-17.5); IMMATURE GRANULOCYTE % 0.4 % (0-3.0); LYMPH # 1.8 10^3/uL (1.5-4.5); LYMPH % 31.7 % (24.0-44.0); MEAN CORPUSCULAR HEMOGLOBIN 30.1 pg (27.0-33.0); MEAN CORPUSCULAR HGB CONC 34.9 g/dl (32.0-36.5); MEAN CORPUSCULAR VOLUME 86.1 fl (80.0-96.0); MONO # 0.4 10^3/uL (0.0-0.8); MONO % 7.5 % (0.0-5.0); NEUTROPHILS # 3.3 10^3/uL (1.8-7.7); NEUTROPHILS % 58.1 % (36.0-66.0); PLATELET COUNT, AUTOMATED 272 10^3/uL (150-450); RED BLOOD COUNT 5.05 10^6/uL (4.30-6.10); WHITE BLOOD COUNT 5.6 10^3/uL (4.0-10.0)
[2018-02-03 10:03] LABS: ANION GAP 7 MEQ/L (8-16); BLOOD UREA NITROGEN 14 MG/DL (7-18); CALCIUM LEVEL 8.8 MG/DL (8.5-10.1); CARBON DIOXIDE LEVEL 31 MEQ/L (21-32); CHLORIDE LEVEL 103 MEQ/L (98-107); CREATININE FOR GFR 1.02 MG/DL (0.70-1.30); GLOMERULAR FILTRATION RATE > 60.0 (>56); GLUCOSE, FASTING 95 MG/DL (70-100); POTASSIUM SERUM 4.3 MEQ/L (3.5-5.1); SODIUM LEVEL 141 MEQ/L (136-145); URIC ACID 6.2 MG/DL (3.5-7.2)
== END 2018-02-03 11:15 | disposition home or self-care (01) ==
LOC: M ED 09:02
DX: M17.11 Unilateral primary osteoarthritis, right knee (principal); M25.461 Effusion, right knee; F99 Mental disorder, not otherwise specified; Z79.899 Other long term (current) drug therapy
CPT/HCPCS: 73564

== ENCOUNTER 2018-05-10 15:32 | Emergency (ER) | payer OTHER ==
[2018-05-10] MEDS: ADACEL/BOOSTRIX VACCINE (DIPHTH/PERTUSS/ACELL/TETANUS)0.5ML SYR (90715) IM (17:40)
[2018-05-10 17:51] LABS: BASO % 0.2 % (0.0-1.0); EOS # 0.1 10^3/uL (0.0-0.50); EOS % 1.6 % (0.0-3.0); HEMOGLOBIN 13.3 g/dl (13.5-17.5); IMMATURE GRANULOCYTE % 0.2 % (0-3.0); LYMPH # 1.8 10^3/uL (1.5-4.5); LYMPH % 22.1 % (24.0-44.0); MEAN CORPUSCULAR HEMOGLOBIN 29.7 pg (27.0-33.0); MEAN CORPUSCULAR HGB CONC 33.3 g/dl (32.0-36.5); MEAN CORPUSCULAR VOLUME 89.3 fl (80.0-96.0); MONO # 0.8 10^3/uL (0.0-0.8); MONO % 9.9 % (0.0-5.0); NEUTROPHILS # 5.3 10^3/uL (1.8-7.7); PLATELET COUNT, AUTOMATED 257 10^3/uL (150-450); RED BLOOD COUNT 4.48 10^6/uL (4.30-6.10); RED CELL DISTRIBUTION WIDTH 11.9 % (11.5-14.5)
[2018-05-10 18:00] LABS: AMMONIA 14 uMOL/L (<32)
[2018-05-10 18:05] LABS: LACTIC ACID SEPSIS PROTOCOL 1.5 MMOL/L (0.4-2.0)
[2018-05-10 18:20] LABS: ACETAMINOPHEN LEVEL < 2.0 UG/ML (10.0-30.0); ALBUMIN 3.6 GM/DL (3.2-5.2); ALBUMIN/GLOBULIN RATIO 1.16 (1.00-1.93); ALKALINE PHOSPHATASE 80 U/L (45-117); ALT/SGPT 41 U/L (12-78); ANION GAP 9 MEQ/L (8-16); AST/SGOT 42 U/L (7-37); BILIRUBIN,DIRECT 0.1 MG/DL (0.0-0.2); BILIRUBIN,TOTAL 0.4 MG/DL (0.2-1.0); BLOOD UREA NITROGEN 9 MG/DL (7-18); CALCIUM LEVEL 8.5 MG/DL (8.5-10.1); CARBON DIOXIDE LEVEL 29 MEQ/L (21-32); CHLORIDE LEVEL 104 MEQ/L (98-107); CPK CREATINE PHOSPHOKINASE 1335 U/L (39-308); CREATININE FOR GFR 1.07 MG/DL (0.70-1.30); ETHYL ALCOHOL (ETHANOL) < 0.003 % (0.000-0.010); GLOMERULAR FILTRATION RATE > 60.0 (>56); GLUCOSE, FASTING 85 MG/DL (70-100); MB/CK RELATIVE INDEX 0.39 (< OR =4); POTASSIUM SERUM 4.1 MEQ/L (3.5-5.1); SALICYLATE LEVEL 5.2 MG/DL (5.0-30.0); SODIUM LEVEL 142 MEQ/L (136-145); TOTAL PROTEIN 6.7 GM/DL (6.4-8.2); TROPONIN I < 0.02 NG/ML (< 0.10)
[2018-05-10] MEDS: NS 1,000 ML IV (18:45)
== END 2018-05-10 19:20 | disposition home or self-care (01) ==
LOC: M ED 15:32
DX: S09.93XA Unspecified injury of face, initial encounter (principal); W19.XXXA Unspecified fall, initial encounter; Y92.410 Unspecified street and highway as the place of occurrence of the external cause
CPT/HCPCS: 90715

== ENCOUNTER 2019-05-22 08:06 | Emergency (ER) | payer OTHER ==
[~2019-05-22] VITALS: Ht 152.4 cm; Wt 112.1 kg
[~2019-05-22 08:06] MED LIST changes: +AUGM875T28 PO; +CAPS0.1C2 EX; +NAPR-837 PO
[2019-05-22 08:34] VITALS: BP 130/90
[2019-05-22] MEDS ORDERED: AUGM875T28 PO (08:40)
[2019-05-22] MEDS ORDERED: CLAR10CA3 PO (08:40)
[2019-05-22] MEDS ORDERED: MUCI600T31 PO (08:40)
[2019-05-22] MEDS ORDERED: NAPR-837 PO (08:40)
[2019-05-22] MEDS ORDERED: AUGMENTIN 875 MG TAB PO ONE (08:45)
[2019-05-22] MEDS ORDERED: NAPROXEN 250 MG TAB PO ONE (08:45)
== END 2019-05-22 08:58 | disposition home or self-care (01) ==
LOC: M ED 08:06
DX: J01.90 Acute sinusitis, unspecified (principal); F32.9 Major depressive disorder, single episode, unspecified; Z79.899 Other long term (current) drug therapy

== ENCOUNTER 2019-06-26 07:54 | Emergency (ER) | payer OTHER ==
[~2019-06-26] VITALS: Ht 182.9 cm; Wt 113.9 kg
[~2019-06-26 07:54] MED LIST changes: +CLAR10CA3 PO; +MUCI600T31 PO
[2019-06-26] MEDS ORDERED: ACETAMINOPHEN 500 MG TAB PO ONE (08:15)
[2019-06-26] MEDS ORDERED: IBUPROFEN 400 MG TAB PO ONE (08:15)
[2019-06-26] MEDS ORDERED: AMOX500C PO (08:37)
[2019-06-26 08:38] LABS: INFLUENZA A AMPLIFICATION NEGATIVE (NEGATIVE); INFLUENZA B AMPLIFICATION NEGATIVE (NEGATIVE)
--- NOTE | 2019-06-26 08:38 | REP ---
PA and lateral chest: There are no comparisons. There is infiltrate in the right middle lobe. Lung soler otherwise clear. Cardiac size is normal. The ender, mediastinum, skeletal structures are unremarkable. Impression: Right middle lobe infiltrate. Electronically Signed by Keith Samaniego MD 06/26/2019 08:29 A
[2019-06-26] MEDS ORDERED: AMOXICILLIN 500 MG CAP PO ONE (08:45)
[2019-06-26 09:28] VITALS: BP 143/79
== END 2019-06-26 09:30 | disposition home or self-care (01) ==
LOC: M ED 07:54
DX: J18.9 Pneumonia, unspecified organism (principal); Z87.891 Personal history of nicotine dependence; Z79.899 Other long term (current) drug therapy

== ENCOUNTER 2020-04-16 15:25 | Emergency (ER) | payer OTHER ==
[~2020-04-16] VITALS: Ht 182.9 cm; Wt 103.6 kg
[~2020-04-16 15:25] MED LIST changes: +AMOX500C PO
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
[2020-04-16 17:15] VITALS: BP 140/82
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
== END 2020-04-16 17:26 | disposition home or self-care (01) ==
LOC: M ED 15:25
DX: S00.03XA Contusion of scalp, initial encounter (principal); S80.212A Abrasion, left knee, initial encounter; V13.9XXA Unspecified pedal cyclist injured in collision with car, pick-up truck or van in traffic accident, initial encounter; Y92.9 Unspecified place or not applicable; Y93.9 Activity, unspecified; Y99.9 Unspecified external cause status; M50.30 Other cervical disc degeneration, unspecified cervical region; M48.02 Spinal stenosis, cervical region; M25.78 Osteophyte, vertebrae; M46.92 Unspecified inflammatory spondylopathy, cervical region; Z79.899 Other long term (current) drug therapy

== ENCOUNTER → 2022-09-29 | Outpatient (REF) | payer OTHER ==
[~2022-09-29] MED LIST changes: -PAXI10TA12 PO; +PAXI10TA13 PO
[2022-09-29 13:21] LABS: THYROID STIMULATING HORMONE 2.498 uIU/ML (0.55-4.78); TOTAL 25(OH) VITAMIN D 24.8 NG/ML (20.0-100.0)
[2022-09-29 13:24] LABS: ALKALINE PHOSPHATASE 86 U/L (46-116); ALT/SGPT 40 U/L (7.0-40); AST/SGOT 12 U/L (<34); BILIRUBIN,TOTAL 0.3 MG/DL (0.3-1.2); BLOOD UREA NITROGEN 17 MG/DL (9-23); CARBON DIOXIDE LEVEL 26 MMOL/L (20-31); CHLORIDE LEVEL 106 MMOL/L (98-107); CHOLESTEROL LEVEL 179 MG/DL (<200); CHOLESTEROL RISK RATIO 3.72 (<5); GLOMERULAR FILTRATION RATE > 60.0 (>56); GLUCOSE, FASTING 101 MG/DL (60-100); HDL CHOLESTEROL 48.1 MG/DL (>40); LDL CHOLESTEROL 110.7 MG/DL (<100); NON-HDL-C 131 MG/DL; POTASSIUM SERUM 4.3 MMOL/L (3.5-5.1); SODIUM LEVEL 139 MMOL/L (136-145); TOTAL PROTEIN 7.1 G/DL (5.7-8.2); TRIGLYCERIDES LEVEL 101 MG/DL (<150)
== END ==
LOC: M LAB REF 11:25
PROVIDERS: ATTEND Family Medicine Addiction Medicine
DX: E78.5 Hyperlipidemia, unspecified (principal); E55.9 Vitamin D deficiency, unspecified

== ENCOUNTER 2024-02-08 22:16 | Emergency (ER) | payer OTHER ==
[2024-02-09 01:04] VITALS: BP 142/85; TEMP 99.6; O2SAT 98
[2024-02-09 02:54] LABS: BASO % 0.2 % (0.0-1.0); EOS # 0.1 10^3/uL (0.0-0.5); EOS % 0.8 % (0.0-3.0); HEMOGLOBIN 14.6 g/dl (13.5-17.5); LYMPH # 1.6 10^3/uL (1.5-5.0); LYMPH % 16.1 % (24.0-44.0); MEAN CORPUSCULAR HEMOGLOBIN 30.3 pg (27.0-33.0); MEAN CORPUSCULAR HGB CONC 33.2 g/dl (32.0-36.5); MEAN CORPUSCULAR VOLUME 91.3 fl (80.0-96.0); MONO % 10.2 % (2.0-8.0); NEUTROPHILS # 7.2 10^3/uL (1.5-8.5); NEUTROPHILS % 72.4 % (36.0-66.0); PLATELET COUNT, AUTOMATED 231 10^3/uL (150-450); RED BLOOD COUNT 4.82 10^6/uL (4.30-6.10)
[2024-02-09 03:06] LABS: ERYTHROCYTE SEDIMENTATION RATE 28 mm/hr (0-20)
[2024-02-09 03:12] LABS: BLOOD UREA NITROGEN 14 MG/DL (9-23); CALCIUM LEVEL 8.8 MG/DL (8.5-10.1); CARBON DIOXIDE LEVEL 31 MMOL/L (20-31); CHLORIDE LEVEL 101 MMOL/L (98-107); CREATININE FOR GFR 1.03 MG/DL (0.70-1.30); GLOMERULAR FILTRATION RATE > 60.0 (>56); GLUCOSE, FASTING 107 MG/DL (60-100); POTASSIUM SERUM 4.5 MMOL/L (3.5-5.1); SODIUM LEVEL 135 MMOL/L (136-145)
== END 2024-02-09 05:16 | disposition left against medical advice (07) ==
LOC: M ED 22:16
DX: Z53.21 Procedure and treatment not carried out due to patient leaving prior to being seen by health care provider (principal)

== ENCOUNTER → 2024-03-17 | Outpatient (REF) | payer OTHER ==
[2024-03-17 13:28] LABS: BLOOD UREA NITROGEN 10 MG/DL (9-23); CALCIUM LEVEL 9.3 MG/DL (8.5-10.1); CARBON DIOXIDE LEVEL 29 MMOL/L (20-31); CHLORIDE LEVEL 103 MMOL/L (98-107); CREATININE FOR GFR 0.97 MG/DL (0.70-1.30); GLOMERULAR FILTRATION RATE > 60.0 (>56); GLUCOSE, FASTING 88 MG/DL (60-100); POTASSIUM SERUM 4.3 MMOL/L (3.5-5.1); SODIUM LEVEL 138 MMOL/L (136-145)
== END ==
LOC: M LAB REF 13:01
PROVIDERS: ATTEND Nurse Practitioner Family
DX: R60.0 Localized edema (principal)

== ENCOUNTER → 2024-05-18 | Outpatient (CLI) | payer OTHER | LOC: M RAD 15:26 | PROVIDERS: ATTEND Nurse Practitioner Family | DX: R60.0 Localized edema (principal) ==

== ENCOUNTER → 2024-06-20 | Outpatient (REF) | payer OTHER ==
[2024-06-20 14:07] LABS: HEMOGLOBIN A1c 5.7 % (4.0-6.0)
[2024-06-20 14:11] LABS: ALBUMIN 3.9 G/DL (3.2-5.2); ALKALINE PHOSPHATASE 91 U/L (40-129); ALT/SGPT 31 U/L (7.0-40); AST/SGOT 19 U/L (<34); BILIRUBIN,TOTAL 0.5 MG/DL (0.3-1.2); BLOOD UREA NITROGEN 11 MG/DL (9-23); CALCIUM LEVEL 9.8 MG/DL (8.5-10.1); CARBON DIOXIDE LEVEL 30 MMOL/L (20-31); CHLORIDE LEVEL 100 MMOL/L (98-107); CHOLESTEROL LEVEL 191 MG/DL (<200); CHOLESTEROL RISK RATIO 4.24 (<5); CREATININE FOR GFR 0.91 MG/DL (0.70-1.30); GLOMERULAR FILTRATION RATE > 60.0 (>56); GLUCOSE, FASTING 92 MG/DL (60-100); LDL CHOLESTEROL 122.2 MG/DL (<100); POTASSIUM SERUM 4.2 MMOL/L (3.5-5.1); SODIUM LEVEL 137 MMOL/L (136-145); THYROID STIMULATING HORMONE 1.681 uIU/ML (0.55-4.78); TOTAL PROTEIN 7.6 G/DL (5.7-8.2); TRIGLYCERIDES LEVEL 119 MG/DL (<150)
== END ==
LOC: M LAB REF 13:08
PROVIDERS: ATTEND Nurse Practitioner Family
DX: I10 Essential (primary) hypertension (principal); E66.9 Obesity, unspecified

== ENCOUNTER → 2024-09-20 | Outpatient (CLI) | payer OTHER | LOC: M RAD 06:43 | PROVIDERS: ATTEND Nurse Practitioner Family | DX: Z12.2 Encounter for screening for malignant neoplasm of respiratory organs (principal); F17.211 Nicotine dependence, cigarettes, in remission; R91.8 Other nonspecific abnormal finding of lung field ==

== ENCOUNTER 2024-10-28 21:15 | Emergency (ER) | payer OTHER ==
[~2024-10-28] VITALS: Ht 182.9 cm; Wt 124.4 kg
[2024-10-28 21:18] VITALS: TEMP 97.6; O2SAT 98
[2024-10-28] MEDS ORDERED: MUPI2OI (21:23)
[2024-10-28] MEDS ORDERED: LISI20TA37 (21:23)
[2024-10-28 22:23] LABS: BASO % 0.3 % (0.0-1.0); EOS # 0.1 10^3/uL (0.0-0.5); EOS % 1.9 % (0.0-3.0); HEMATOCRIT 42.4 % (42.0-52.0); HEMOGLOBIN 14.5 g/dl (13.5-17.5); LYMPH # 2.1 10^3/uL (1.5-5.0); LYMPH % 27.4 % (24.0-44.0); MEAN CORPUSCULAR HEMOGLOBIN 30.9 pg (27.0-33.0); MEAN CORPUSCULAR HGB CONC 34.2 g/dl (32.0-36.5); MEAN CORPUSCULAR VOLUME 90.2 fl (80.0-96.0); MONO % 13.4 % (2.0-8.0); NEUTROPHILS # 4.3 10^3/uL (1.5-8.5); NEUTROPHILS % 56.7 % (36.0-66.0); PLATELET COUNT, AUTOMATED 250 10^3/uL (150-450); WHITE BLOOD COUNT 7.6 10^3/uL (4.0-10.0)
[2024-10-28] MEDS: DOXYCYCLINE HYCLATE 100MG TABLET PO ONE (22:40)
[2024-10-28 22:52] LABS: BLOOD UREA NITROGEN 17 MG/DL (9-23); CALCIUM LEVEL 9.2 MG/DL (8.5-10.1); CARBON DIOXIDE LEVEL 30 MMOL/L (20-31); CHLORIDE LEVEL 102 MMOL/L (98-107); CREATININE FOR GFR 0.95 MG/DL (0.70-1.30); GLOMERULAR FILTRATION RATE > 60.0 (>56); GLUCOSE, FASTING 97 MG/DL (60-100); POTASSIUM SERUM 3.9 MMOL/L (3.5-5.1); SODIUM LEVEL 140 MMOL/L (136-145)
[2024-10-28 22:56] VITALS: BP 156/84
[2024-10-28] MEDS ORDERED: DOXY-441 PO (22:58)
== END 2024-10-28 23:02 | disposition home or self-care (01) ==
LOC: M ED 21:15
DX: L03.115 Cellulitis of right lower limb (principal); I10 Essential (primary) hypertension; F32.A Depression, unspecified; Z87.891 Personal history of nicotine dependence; I87.2 Venous insufficiency (chronic) (peripheral); I87.312 Chronic venous hypertension (idiopathic) with ulcer of left lower extremity; Z79.899 Other long term (current) drug therapy